=== PATIENT | male | born 1965 | race Caucasian/White ===

== ENCOUNTER 2017-10-24 23:42 | Emergency (ER) | payer MEDICARE, SELFPAY ==
[2017-10-24 23:44] VITALS: BP 137/94; PULSE 91; RESP 15; TEMP 37.2; O2SAT 98; BMI 26.4
--- NOTE | 2017-10-25 00:01 | CT_ITS ---
STUDY: CT BRAIN WITHOUT CONTRAST REASON FOR EXAM: Male, 52 years old. Mental status changes RADIATION DOSAGE (If Supplied By Facility): CTDIvol = ( 44.99 ) mGy, DLP = ( 829.85 ) mGycm TECHNIQUE: Transaxial CT imaging of the brain was performed without administration of intravenous contrast material. Individualized dose optimization techniques were used for this CT. COMPARISON: None. FINDINGS: Normal soft tissue structures. Normal calvarium. Normal size ventricles and extra-axial spaces for the patient's age. Normal white matter tracts of the cerebral hemispheres. Normal basal ganglia and thalami. Normal brainstem. Normal cerebellum. There is no intracranial hemorrhage. There are no findings of an acute ischemic infarction. Normal visualized paranasal sinuses. CT/Brain/Head without Contrast IMPRESSION: No CT evidence of acute infarct or hemorrhage. Comment: If there is clinical concern for hyperacute ischemia that is not yet apparent by CT, MRI should be considered if possible. Electronically Signed: Sandro Bradley MD at 0:39 EST Tel , Service support ,
--- NOTE | 2017-10-25 00:03 | ED.VISSUMM ---
- ER Visit Summary Date of Service: 10/25/17 Chief Complaint: Confusion History of Present Illness: The patient is a 52 M history of psychiatric disorder and PTSD. Reportedly had a skull fracture 5 weeks ago. Police brought the patient in to the ER this evening. He was at a gas station and locked himself out of his own car. They thought he was acting abnormally and wanted him evaluated. Patient denies any complaints. Denies any recent illness. Denies any headache or fever. Physical Examination: Well-appearing middle-age male. Vital signs are stable and afebrile. Pulse ox 90% on room air no signs of hypoxia. HEENT exam pupils are reactive light. No signs of trauma. Normal speech. Moist mucous membranes. Neck nontender. No meningismus. No lymphadenopathy. Lungs clear to auscultation bilaterally. Heart regular rate and rhythm no murmur. Abdomen soft nontender. He is moving all 4 extremities. They are neurovascularly intact. Equal symmetrical hand rug braider strength. Dorsi plantar flexion intact. Back exam nontender. Neurologically he is awake alert. He has normal speech. He has normal motor and sensory to both upper and lower extremities. He has no facial droop. He knows month. He knows day of the week. He is answering questions. He does have a different affect which may be secondary to psychiatric disorder. Test Results: CT brain no acute abnormality. BC normal. BMP normal. Alcohol level negative. Emergency Department Course and Treatment: Patient will be worked up for confusion with a CAT scan and labs. This may all be secondary to underlying psychiatric illness. Treatment Plan: Exam unchanged at 0105. Clinically I suspect this is the patient's baseline he has underlying psychiatric illness. Currently is not homicidal or suicidal. And will be discharged to home. Disposition: dc Impression: Acute confusion History of PTSD and underlying psychiatric illness This note was generated with [employer] dictation software. It may contain incorrect words, spelling, and punctuation that were not noted in review of the chart prior to signing ED Disposition - Plan for ED Patient: Chief Complaint: Confusion Referrals: [facility] Doctor,Out of [Primary Care Provider] -
--- NOTE | 2017-10-25 00:06 | ED.DCSUM_ITS ---
- ER Visit Summary Date of Service: 10/25/17 Chief Complaint: Confusion History of Present Illness: The patient is a 52 M history of psychiatric disorder and PTSD. Reportedly had a skull fracture 5 weeks ago. Police brought the patient in to the ER this evening. He was at a gas station and locked himself out of his own car. They thought he was acting abnormally and wanted him evaluated. Patient denies any complaints. Denies any recent illness. Denies any headache or fever. Physical Examination: Well-appearing middle-age male. Vital signs are stable and afebrile. Pulse ox 90% on room air no signs of hypoxia. HEENT exam pupils are reactive light. No signs of trauma. Normal speech. Moist mucous membranes. Neck nontender. No meningismus. No lymphadenopathy. Lungs clear to auscultation bilaterally. Heart regular rate and rhythm no murmur. Abdomen soft nontender. He is moving all 4 extremities. They are neurovascularly intact. Equal symmetrical salt maker strength. Dorsi plantar flexion intact. Back exam nontender. Neurologically he is awake alert. He has normal speech. He has normal motor and sensory to both upper and lower extremities. He has no facial droop. He knows month. He knows day of the week. He is answering questions. He does have a different affect which may be secondary to psychiatric disorder. Test Results: CT brain no acute abnormality. BC normal. BMP normal. Alcohol level negative. Emergency Department Course and Treatment: Patient will be worked up for confusion with a CAT scan and labs. This may all be secondary to underlying psychiatric illness. Treatment Plan: Exam unchanged at 0105. Clinically I suspect this is the patient's baseline he has underlying psychiatric illness. Currently is not homicidal or suicidal. And will be discharged to home. Disposition: dc Impression: Acute confusion History of PTSD and underlying psychiatric illness This note was generated with [employer] dictation software. It may contain incorrect words, spelling, and punctuation that were not noted in review of the chart prior to signing ED Disposition - Plan for ED Patient: Chief Complaint: Confusion Referrals: [facility] Doctor,Out of [Primary Care Provider] -
[2017-10-25 00:25] LABS: Absolute Lymphocyte Count 3.45 X10^3/ul (0.83-4.51); Absolute Neutrophil Count 5.2 X10^3/uL (2.0-7.7); Basophil# 0.11 X10^3/uL; Basophil% 1.1 % (0-1); Eosinophil# 0.28 X10^3/uL; Eosinophils% 2.8 % (0-5); Hematocrit 47.5 % (40-54); Hemoglobin 15.5 g/dl (13.0-16.5); Lymphocyte # 3.45 X10^3/ul (4.0); Lymphocyte % 34.5 % (19-41); Mean Corp Hgb Conc 32.6 g/gl (32-36); Mean Corpuscular Hgb 31.2 pg (27.0-32.0); Mean Corpuscular Volume 95.6 fL (80-94); Mean Platelet Vol. 9.8 fl (6.2-12.0); Monocyte# 0.91 X10^3/uL; Monocyte% 9.1 % (0-10); Neutrophil # 5.23 X10^3/uL (2.7-7.7); Neutrophil % 52.4 % (47-70); Platelet Count 325 K/mm3 (150-450); RBC Distribution Width CV 13.4 % (11.6-14.6); RBC Distribution Width SD 46.3 fl (35.1-43.9); Red Blood Count 4.97 M/mm3 (4.6-6.2)
[2017-10-25 00:30] LABS: POSITIVE COUNT NO; POSITIVE DIFFERENTIAL NO; POSITIVE MORPHOLOGY NO
[2017-10-25 00:52] LABS: Anion Gap 8 (5-15); BUN 17 mg/dL (7-18); BUN/Creat Ratio 26.6 RATIO (10-20); Calcium,Total 8.7 mg/dL (8.5-10.1); Chloride 107 mmol/L (98-107); Creatinine, Serum 0.64 mg/dL (0.70-1.30); EST Glomerular Filtration Rate 138 mL/min (>60); Est Glom Filt Rate - Afr Amer 167 mL/min (>60); Estimated Creatinine Clearance 149.12 ml/min; Glucose 111 mg/dL (74-106); Potassium 3.5 mmol/L (3.5-5.1); Sodium Level 141 mmol/L (136-145)
[2017-10-25 01:05] VITALS: RESP 16
--- NOTE | 2017-10-25 01:08 | ED.DEP ---
ED Disposition - Plan for ED Patient: Disposition: Home or Assisted Living Chief Complaint: Confusion Instructions: ED Altered Loc Referrals: [facility],Out of [Primary Care Provider] - 3-5 Days if not improving Additional Instructions: Call and follow-up your primary care doctor next week.
--- NOTE | 2017-10-25 02:29 | NURSING ---
PT'S TEST RESULTS WERE REVIEWED WITH PATIENT AND HE WAS GIVEN DISCHARGE PAPERWORK. PT WAS ASKED MULTIPLE TIMES WHAT WE COULD DO TO HELP HIM GET HOME. HE SAID HE WAS OK AND GOT DRESSED. PT WALKED OUT OF ER.
== END 2017-10-25 02:30 | disposition home or self-care (01) ==
PROVIDERS: Emergency Provider Emergency Medicine
DX: R41.0 Disorientation, unspecified (principal); F99 Mental disorder, not otherwise specified; Z72.0 Tobacco use; Z86.59 Personal history of other mental and behavioral disorders
CPT/HCPCS: 70450; 80048; 80320; 85025; 99283; A4216; G0480